=== PATIENT | female | born 1955 | race Hispanic/Latino ===

== ENCOUNTER 2019-01-02 05:57 | Day surgery (SDC) | payer OTHER ==
[~2019-01-02 05:57] MED LIST: BUPIVACAINE/PF (0.5%) 5 MG/1 ML 10 ML VIAL INFILTRATI ONE
[2019-01-02] MEDS ORDERED: SODIUM CHLORIDE 0.9% 1000 ML 1,000 ML IV SCH (06:00)
[2019-01-02 06:54] LABS: Basophils # (Auto) 0.1 K/mm3 (0.0-0.1); Basophils % (Auto) 0.8 % (0.0-1.8); Eosinophils # (Auto) 0.2 K/mm3 (0.0-0.4); Eosinophils % (Auto) 2.7 % (0.0-4.3); Hematocrit 45.1 % (30.3-42.9); Hemoglobin 14.9 gm/dl (10.1-14.3); Lymphocytes # (Auto) 1.9 K/mm3 (1.2-5.4); Lymphocytes % (Auto) 24.1 % (13.4-35.0); Mean Corpuscular HGB Conc 33 % (30-34); Mean Corpuscular Volume 95 fl (79-97); Monocytes # (Auto) 0.7 K/mm3 (0.0-0.8); Monocytes % (Auto) 8.8 % (0.0-7.3); Platelet Count 247 K/mm3 (140-440); Red Blood Count 4.76 M/mm3 (3.65-5.03); Red Cell Distribution Width 13.8 % (13.2-15.2)
[2019-01-02 07:15] LABS: Calcium 8.7 mg/dL (8.4-10.2)
[2019-01-02] MEDS ORDERED: PROTAMINE SULFATE 50 MG/5 ML INJ ONE (07:16)
[2019-01-02] MEDS ORDERED: PAPAVERINE 60 MG/2 ML INJ SDV ONE (07:16)
[2019-01-02] MEDS ORDERED: LIDOCAINE (1%) 10 MG/1 ML VIAL 20 ML MDV ONE (07:16)
[2019-01-02] MEDS ORDERED: NITROGLYCERIN SYRINGE 0 ML ONE (07:17)
[2019-01-02] MEDS ORDERED: HEPARIN 10,000 UNITS/10 ML VIAL ONE (07:17)
[2019-01-02] MEDS ORDERED: BUPIVACAINE/PF (0.5%) 5 MG/1 ML 30 ML VIAL INFILTRATI ONE (07:17)
[2019-01-02] MEDS ORDERED: SODIUM CHLORIDE 0.9% 500 ML 500 ML ONE (07:17)
--- NOTE | 2019-01-02 07:20 | Anesthesia Consultation ---
Anesthesia Consult and Med Hx Date of service: 01/02/19 - Airway Anesthetic Teeth Evaluation: Edentulous ROM Head & Neck: Adequate Mental/Hyoid Distance: Adequate Mallampati Class: Class IV Intubation Access Assessment: Possibly Difficult - Pulmonary Exam CTA: Yes - Cardiac Exam Cardiac Exam: RRR - Pre-Operative Health Status ASA Pre-Surgery Classification: ASA3 Proposed Anesthetic Plan: General - Pulmonary Hx Smoking: Yes (1/2 PPD X 40 YRS) Hx Respiratory Symptoms: No Hx Sleep Apnea: No (MELL PRE SCREEN HIGH RISK.) - Cardiovascular System Hx Hypertension: Yes (took lisinopril/HCTZ this morning) Hx Coronary Artery Disease: Yes Hx Percutaneous Transluminal Coronary Angioplasty (PTCA): Yes (x3 in 2010) Hx Cardia Arrhythmia: No Hx Pacemaker: No Hx Internal Defibrillator: No - Central Nervous System CVA: No - Gastrointestinal Hx Gastroesophageal Reflux Disease: No - Endocrine Hx Renal Disease: Yes (CKD 5; not yet on HD) Hx Liver Disease: No Hx Insulin Dependent Diabetes: No Hx Non-Insulin Dependent Diabetes: No Hx Thyroid Disease: No - Hematic Hx Anemia: No - Other Systems Hx Obesity: Yes (BMI 38) - Additional Comments Anesthesia Medical History Comments: No hx anesthetic complications. Will administer home dose amlodipine and metoprolol preoperatively.
[2019-01-02] MEDS ORDERED: fentaNYL 100 MCG/2 ML INJ IV PRN (07:21)
--- NOTE | 2019-01-02 07:21 | Anesthesia Day of Surgery ---
Anesthesia Day of Surgery - Day of Surgery Patient Examined: Yes Patient H&P Reviewed: Yes Patient is NPO: Yes Beta Blockers: Yes
[2019-01-02] MEDS ORDERED: METOPROLOL TARTRATE 100 MG TAB PO SCH ×2 (07:23→10:00)
[2019-01-02] MEDS ORDERED: PROPOFOL 200 MG/20 ML VIAL IV ONE (07:42)
[2019-01-02] MEDS ORDERED: fentaNYL 100 MCG/2 ML INJ ONE (07:42)
[2019-01-02] MEDS ORDERED: LIDOCAINE MPF (2%) 20 MG/1 ML VIAL 5 ML ONE (07:42)
[2019-01-02] MEDS ORDERED: MIDAZOLAM 2 MG/2 ML INJ IV NR (08:00)
[2019-01-02] MEDS ORDERED: amLODIPine 10 MG TAB PO SCH ×2 (08:00→10:00)
[2019-01-02] MEDS ORDERED: CLINDAMYCIN 600 MG/50 mL 600 MG/50 ML BAG IV NR (09:00)
[2019-01-02] MEDS ORDERED: GLYCOPYRROLATE 0.4 MG/2 ML INJ ONE (09:20)
[2019-01-02] MEDS ORDERED: HYDROmorphone 1 MG/1 ML INJ ONE (09:25)
[2019-01-02] MEDS ORDERED: SODIUM CHLORIDE 0.9% 500 ML IVPB IV ONE (09:27)
[2019-01-02] MEDS ORDERED: HEPARIN 10,000 UNITS/10 ML VIAL IV ONE (09:27)
[2019-01-02] MEDS ORDERED: SODIUM CHLORIDE 0.9% 100 ML ONE (09:28)
[2019-01-02] MEDS ORDERED: PHENYLEPHRINE 10 MG/1 ML INJ SDV ONE (09:28)
[2019-01-02] MEDS ORDERED: ONDANSETRON 4 MG/2 ML INJ ONE (09:59)
[2019-01-02] MEDS ORDERED: dexAMETHasone 20 MG/5 ML VIAL ONE (09:59)
[2019-01-02] MEDS ORDERED: BUPIVACAINE/PF (0.5%) 5 MG/1 ML 10 ML VIAL INFILTRATI ONE (10:00)
--- NOTE | 2019-01-02 10:13 | Short Stay Summary ---
Short Stay Documentation Date of service: 01/02/19 Narrative H&P: See H&P - Allergies and Medications Current Medications: Allergies Penicillins Allergy (Verified 12/27/18 14:52) Rash Home Medications Medication Instructions Recorded Confirmed Last Taken Type Cholecalciferol (Vitamin D3) 5,000 unit PO QWEEK 12/27/18 01/02/19 01/01/19 09:00 History [Vitamin D3 5,000 UNIT] Hydralazine HCl 50 mg PO BID 12/27/18 01/02/19 01/01/19 09:00 History Lisinopril/Hydrochlorothiazide 1 each PO DAILY 12/27/18 01/02/19 01/01/19 09:00 History [Zestoretic 10-12.5 mg Tablet] Metoprolol [Lopressor] 100 mg PO DAILY 12/27/18 01/02/19 01/02/19 07:40 History Sodium Bicarbonate 650 mg PO TID 12/27/18 01/02/19 01/01/19 18:00 History amLODIPine [Norvasc] 10 mg PO DAILY 12/27/18 01/02/19 01/02/19 07:40 History Active Medications Amlodipine Besylate (Amlodipine) 10 mg PO QDAY [facility] Last Admin: 01/02/19 07:40 Dose: 10 mg Documented by: Fentanyl (Sublimaze) 50 mcg IV Q5MIN PRN PRN Reason: Pain , Severe (7-10) Stop: 01/02/19 22:00 Sodium Chloride (Nacl 0.9% 1000 Ml) 1,000 mls @ 42 mls/hr IV DIRECT [facility] Last Admin: 01/02/19 07:35 Dose: 42 mls/hr Documented by: Clindamycin HCl (Cleocin 900 Mg/50 Ml) 900 mg in 50 mls @ 100 mls/hr IV PREOP NR; Protocol Stop: 01/02/19 12:00 Metoprolol Tartrate (Metoprolol) 100 mg PO QDAY [facility] Last Admin: 01/02/19 07:41 Dose: 100 mg Documented by: Midazolam HCl (Versed) 2 mg IV PREOP NR Stop: 01/02/19 23:59 Last Admin: 01/02/19 07:52 Dose: 2 mg Documented by: - Brief post op/procedure progress note Date of procedure: 01/02/19 Pre-op diagnosis: Chronic Renal Insufficiency Stage IV Post-op diagnosis: same Procedure: Creation of Left Brachiocephalic Arteriovenous Fistula Anesthesia: HARITHA Surgeon: THERESA MOTA Estimated blood loss: minimal Pathology: none Condition: stable - Disposition Condition at discharge: Good Disposition: DC-01 TO HOME OR SELFCARE Short Stay Discharge Plan Activity: other (No heavy lifting with left arm for 2 weeks. Use stress ball as frequently as possible with left arm to assist with maturation of AV fistula.) Wound: open to air, keep clean and dry, other (Okay to shower and wash the wound with soap and water but do not soak in water.) Follow up with: THERESA MOTA MD [Staff Physician] - 14 Days Prescriptions: HYDROcodone/APAP 7.5-325 [[place] 7.5/325] 1 each PO Q6HR PRN #40 tablet PRN Reason: Pain
--- NOTE | 2019-01-02 10:16 | Operative Report ---
Operative Report Operative Report: Date of procedure: 01/02/2019 Pre-operative diagnosis: Chronic Renal Insufficiency Stage IV Post-operative diagnosis: Same Procedure(s): Creation of Left Brachial Artery to Cephalic Vein Arteriovenous Fistula Surgeon: Reggie Rocha MD Vortex Operator: None Anesthesia: Gen. Endotracheal Anesthesia EBL: Minimal Counts: Correct Complications: None Condition: Stable Findings: Successful creation of left arm AV fistula palpable pulse at the completion of the procedure. Specimen: None Indications: The patient is a 63-year-old female with a history of chronic renal insufficiency who is not yet on hemodialysis however it is anticipated that she will require hemodialysis in the next several months. She is in need of long- term access to avoid the need for a permacath for dialysis. She had a vein mapping that demonstrated she was an adequate candidate for creation of an AV fistula. She was given the risks, benefits, and alternative procedures and consented to the procedure. Description of Procedure: The patient was brought to the operating room and laid in supine position after general endotracheal anesthesia was administered the patient was prepped and draped in normal sterile fashion. After anesthetizing the skin a transverse incision was created just below the antecubital crease. Dissection was carried down to the the cephalic vein using sharp dissection. The vein was dissected out both proximally and distally and suture ligated and divided distally. I then ran a 3 Yumiko proximally in the vein, to ensure patency of the vein. Then flushed the vein with heparinized saline and flow was controlled with a bulldog clamp. I then dissected out the brachial artery through this incision circumferentially both proximal and distal and controlled the artery with vessel loops. I then placed the vessel loops on tension controlling the flow through the artery and created an arteriotomy using an 11 blade and Joiner scissors. I created an end to side anastomosis between the cephalic vein and brachial artery using a 6-0 Prolene in running fashion. Prior to completing the anastomosis I flushed the artery both proximally and distally and then advanced a 3 Yumiko proximally to break the spasm in the artery. I then completed the anastomosis and removed all vessel loops allowing flow into the fistula which had an excellent thrill. I achieved hemostasis with a combination of direct pressure Kin. Once hemostasis was achieved I anesthetized the wound with 0.5% Gm ine. I then closed the wound in 2 layers and 3-0 Vicryl in a running fashion to close the deep dermal layer and 4-0 Monocryl in a running fashion in the subcuticular layer. I dressed the wound with Dermabond. The patient tolerated the procedure well, all sponge needle and instrument counts were correct. The patient was taken to recovery in stable condition.
[2019-01-02] MEDS ORDERED: HYDROcodone/ACETAMINOPHEN 7.5-325MG TAB PO PRN (10:48)
[2019-01-02 10:55] VITALS: BP 126/64
--- NOTE | 2019-01-02 11:23 | Post Anesthesia Evaluation ---
- Post Anesthesia Evaluation Patient Participated: Yes Airway Patent: Yes Stable Respiratory Function: Yes Nausea/Vomiting: No Temp > 96.8F: Yes Pain Manageable: Yes Adequeate Hydration: Yes Anesthesia Complications: No
== END 2019-01-02 11:35 | disposition home or self-care (01) ==
LOC: OR 05:57
PROVIDERS: ATTEND Surgery Vascular Surgery
DX: I12.0 Hypertensive chronic kidney disease with stage 5 chronic kidney disease or end stage renal disease (principal); N18.6 End stage renal disease; I25.10 Atherosclerotic heart disease of native coronary artery without angina pectoris; F17.210 Nicotine dependence, cigarettes, uncomplicated; E66.9 Obesity, unspecified; Z68.38 Body mass index [BMI] 38.0-38.9, adult; Z88.0 Allergy status to penicillin; Z79.899 Other long term (current) drug therapy; Z90.49 Acquired absence of other specified parts of digestive tract; Z99.2 Dependence on renal dialysis
CPT/HCPCS: 36415; 36821; 80048; 85025; J1100; J1170; J1644; J2250; J2370; J2405; J2704; J3010; J7030; J7040; J2440; J2720